=== PATIENT | male | born 1950 | race Caucasian/White ===

== ENCOUNTER 2024-11-06 08:37 | Day surgery (SDC) | payer MEDICARE, SELFPAY ==
[2024-11-05 08:55] VITALS: BMI 36.6
--- NOTE | 2024-11-05 17:24 | EXP.HP ---
History of Present Illness *Admission Date: 11/06/24 *History of present illness: Mr. Munoz is a 74-year-old gentleman who is here for diagnostic upper endoscopy secondary to evaluate noncardiac chest pain/esophageal chest pain. The patient was placed on omeprazole. The examination is deemed medically necessary for diagnostic EGD. The patient has been seen, interviewed and examined prior to the procedure by both myself and the anesthesia provider. [facility] Disclaimer: The information contained in this section may have been updated after the patient was seen, as this information can be updated by other users. Medical History Diverticulitis HLD (hyperlipidemia) HTN (hypertension) Hemorrhoids Diabetes mellitus type 2, controlled Hx of nephrolithotomy with removal of calculi History of kidney stones Surgical History History of throat surgery H/O heart artery stent Family History Other Family history of cancer Family history of myocardial infarction Lung cancer Social History Smoking Status: Former smoker alcohol intake: never substance use type: denies use current occupational status: retired Travel in the last 8 weeks?: None caffeine: Yes Review of Systems Review of Systems Review of systems (narrative): Negative *Cardiovascular Comments: Negative *Gastrointestinal Comments: Negative *Genitourinary Comments: Negative *Musculoskeletal Comments: Negative *Neurologic Comments: Negative Meds Home Medications and Allergies Home Medications ?Medication ?Instructions ?Recorded ?Confirmed ?Type aliskiren 300 mg tablet 300 mg PO DAILY 11/05/24 11/06/24 History allopurinol 100 mg tablet 100 mg PO DAILY 11/05/24 11/06/24 History aspirin 81 mg tablet 81 mg PO DAILY 11/05/24 11/06/24 History clonidine HCl 0.2 mg tablet 0.2 mg PO BID 11/05/24 11/06/24 History furosemide 40 mg tablet (Lasix) 40 mg PO QODHS 11/05/24 11/06/24 History glipizide 5 mg tablet 5 mg PO BID 11/05/24 11/06/24 History insulin glargine 100 unit/mL (3 42 unit SQ DAILY 11/05/24 11/06/24 History mL) subcutaneous pen (Lantus Solostar U-100 Insulin) omeprazole 40 mg capsule,delayed 40 mg PO DAILY 11/05/24 11/06/24 History release rosuvastatin 10 mg tablet 10 mg PO DAILY 11/05/24 11/06/24 History sitagliptin phosphate 100 mg 100 mg PO DAILY 11/05/24 11/06/24 History tablet (Januvia) trazodone 100 mg tablet 100 mg PO HS 11/05/24 11/06/24 History New Prescriptions to Start Prescriptions: Allergies Allergy/AdvReac Type Severity Reaction Status Date / Time amoxicillin (From Augmentin) Allergy Rash Verified 11/06/24 09:23 atorvastatin Allergy Muscle Pain Verified 11/06/24 09:23 cephalexin Allergy Rash Verified 11/06/24 09:23 clavulanic acid (From Allergy Rash Verified 11/06/24 09:23 Augmentin) lisinopril Allergy Cough Verified 11/06/24 09:23 metoprolol (From Lopressor) Allergy Headache Verified 11/06/24 09:23 oxycodone AdvReac Nausea Verified 11/06/24 09:23 Exam Data for Last 24 hours I & O for Last 24 hours: Intake & Output 11/02/24 11/03/24 11/04/24 11/05/24 23:59 23:59 23:59 23:59 Weight 270 lb *Routine HEENT Exam Head: Present normocephalic Eye: Present EOMI and PERRL ENT: Present mucous membranes moist *Routine Neck Exam Neck: Present supple *Routine Respiratory Exam Respiratory: Present CTA bilaterally *Routine Cardiovascular Exam Cardiovascular: Present RRR *Routine Abdominal Exam Abdominal: Present soft and normoactive bowel sounds; Absent tenderness *Routine Rectal Exam Rectal:: deferred *Routine Genitalia Exam Genitalia:: deferred *Routine Extremities Exam Extremities: Absent cyanosis, clubbing or edema *Routine Skin Exam Skin: Present warm; Absent rash *Routine Neurological Exam Neurological: Present alert and oriented X3 Assessment and Plan *Assessment and plan (1) Non-cardiac chest pain: Status: Acute Category: Medical Code(s): R07.89 - Other chest pain (2) GERD (gastroesophageal reflux disease): Status: Acute Category: Medical Code(s): K21.9 - Gastro-esophageal reflux disease without esophagitis Plan A/P: 1. Noncardiac chest pain/GERD is the preprocedural diagnosis. The patient will be anesthetized/sedated using MAC sedation. The patient has been seen and examined. Cardiac and lung assessment prior to the examination is stable. Proceed with planned diagnostic EGD.
--- NOTE | 2024-11-06 07:09 | P.PCN_ITS ---
[facility] Procedure Note Date: 11/06/24 Time: 10:32 Procedure Note:: Upper Endoscopy Procedure Report: Esophagogastroduodenoscopy with cold biopsies Endoscopost: Isidoro Meyer II, MD Referring Physician: Lawrence Amor MD Date of Procedure: November 06, 2024 Equipment: Olympus GIF-1100 standard upper endoscope Sedation: MAC sedation Indications: Mr. Munoz is a 74-year-old gentleman who is here for diagnostic upper endoscopy secondary to evaluate noncardiac chest chest pain/pressure presumably of esophageal origin. The patient does report postprandial fullness in his chest retrosternally with a little dyspnea. He did have a normal EKG. He does report a little bloating but reports no belching, heartburn, reflux or dysphagia. He does have some early satiety. The patient was placed on omeprazole. His last EGD was many years ago (Dr. Fran Smith, Sr.). The patient did have a colonoscopy last year (Dr. Arnav Sharpe, [facility] in [place]) and a few benign polyps were removed. He does have a history of diverticulitis. The examination is deemed medically necessary for diagnostic EGD. Procedure: Prior to the procedure, a history and physical exam was performed, and patient's medications and allergies were reviewed. The risks, benefits and alternatives of the sedation and procedure were discussed with the patient. All questions were answered and informed consent was obtained. The patient was brought to the procedure room. Patient identification and proposed procedure were verified by the physician and the nurse. The patient was placed in a left lateral decubitus position and the scope was passed under direct vision. Throughout the procedure, the patient's blood pressure, pulse, and oxygen saturations were monitored continuously. The upper GI endoscopy was accomplished without difficulty. The patient tolerated the procedure well. Findings: The scope was passed directly into the upper esophagus and advanced to the third portion of the duodenum. The post bulbar duodenum, ampulla and duodenal bulb were normal with normal mucosa and conniventes. A cold biopsy was taken from the second portion of the duodenum for the disaccharidase assay. The scope was withdrawn through a normal duodenal bulb and pylorus into the stomach. There was bile reflux with some mild linear reactive gastropathy of the antrum. The body and fundus of the stomach were normal. Upon retroflexion there was no hiatal hernia. A cold biopsy was taken from the antrum and incisura. The scope was then withdrawn into the esophagus. There was no evidence of reflux esophagitis or Wolfe's. There were tertiary contractions and evidence of mild esophageal dysmotility. The remainder of the esophageal mucosa was normal. Impression: 1. Nonerosive GERD with mild esophageal dysmotility 2. Bile reflux with mild linear reactive gastropathy of antrum Plan: I do feel that the patient's chest pressure could be of esophageal origin with bile reflux and some esophageal dyskinesia. However, I do feel that with his age and comorbidities (diabetes) I would pursue cardiac evaluation. He does not have typical exercise-induced angina but does have chest pressure and dyspnea. I will discuss the findings with the patient and family. I will follow-up the biopsies.
[2024-11-06 09:14] VITALS: BP 150/80; PULSE 56; RESP 18; TEMP 36.3; O2SAT 96
[2024-11-06] MEDS: LACTATED RINGERS 1000ML 1,000 ML 50 ML IV (09:39)
--- NOTE | 2024-11-06 10:09 | EXP.ANES.CKL ---
[facility] Disclaimer: The information contained in this section may have been updated after the patient was seen, as this information can be updated by other users. Medical History Diverticulitis HLD (hyperlipidemia) HTN (hypertension) Hemorrhoids Diabetes mellitus type 2, controlled Hx of nephrolithotomy with removal of calculi History of kidney stones Surgical History History of throat surgery H/O heart artery stent Family History Other Family history of cancer Family history of myocardial infarction Lung cancer Social History Smoking Status: Former smoker alcohol intake: never substance use type: denies use current occupational status: retired Travel in the last 8 weeks?: None caffeine: Yes [facility] Anesthesia Checklist Patient Identification Patient Identification: Arm Band Structural Data Admitted From: Home Planned Operative Procedure/s: EGD Consent for Planned Operative Procedure(s) Verified: Yes Verified Documents: Surgical Consent and History and Physical NPO Status Verified Time NPO: 00:00 Additional verifications Anesthesia Reactions: No Airway Assessment Mallampati Score:: Class II C-Spine Mobility Assessed: Yes TMJ Mobility Assessed: Yes Dentition: Good Dentition Neurological Assessment Level of Consciousness: Awake, Alert and Appropriate Anesthesia Plan Anesthesia Risk discussed: Yes Anesthesia Plan: Verified ASA Class: III Anesthesia Type: MAC
[2024-11-06 10:32] VITALS: BP 158/69; PULSE 67; RESP 14; TEMP 36.1; O2SAT 93
[2024-11-06 10:42] VITALS: BP 144/68; PULSE 59; RESP 16; O2SAT 97
[2024-11-06 10:52] VITALS: BP 147/75; PULSE 54; RESP 16; O2SAT 94
[2024-11-06 11:02] VITALS: BP 162/77; PULSE 52; RESP 16; O2SAT 93
[2024-11-06 23:07] LABS: POC Glucose,Bedside 168 gm/dL (70-110)
== END 2024-11-06 11:20 | disposition home or self-care (01) ==
PROVIDERS: PCP Internal Medicine; Visit Provider Internal Medicine Gastroenterology
PROC: 0DJ08ZZ Inspection of Upper Intestinal Tract, Via Natural or Artificial Opening Endoscopic (ICD-10-PCS; CPT 43239; principal; 2024-11-06 10:30)
DX: K22.4 Dyskinesia of esophagus (principal); K21.9 Gastro-esophageal reflux disease without esophagitis; K29.70 Gastritis, unspecified, without bleeding; K31.89 Other diseases of stomach and duodenum; I10 Essential (primary) hypertension; E78.5 Hyperlipidemia, unspecified; E11.9 Type 2 diabetes mellitus without complications; Z79.4 Long term (current) use of insulin; Z79.82 Long term (current) use of aspirin; Z88.5 Allergy status to narcotic agent; Z88.8 Allergy status to other drugs, medicaments and biological substances; Z88.0 Allergy status to penicillin
CPT/HCPCS: 43239; 82657; 82962; J2003; J2704; J7120